=== PATIENT | male | born 1995 ===

== ENCOUNTER → 2023-04-28 | Emergency (ER) | payer MEDICAID ==
[~2023-04-28] VITALS: Ht 180.3 cm; Wt 79.5 kg
[~2023-04-28] MED LIST: AMOX1TAB16 PO; IBUP-1492 PO; MONT-35 PO
[2023-04-28 10:19] VITALS: BP 114/72; PULSE 70; RESP 18; TEMP 98
== END | disposition still patient (30) ==
LOC: EMS 10:11
DX: S51.851A Open bite of right forearm, initial encounter (principal); W54.0XXA Bitten by dog, initial encounter; Y93.89 Activity, other specified; Y92.89 Other specified places as the place of occurrence of the external cause; Y99.8 Other external cause status
CPT/HCPCS: 99283